=== PATIENT | female | born 1945 | race Caucasian/White ===

== ENCOUNTER → 2017-09-07 | Outpatient (CLI) | payer MEDICARE, OTHER ==
--- NOTE | 2017-09-07 11:35 | RAD ---
EXAM DESCRIPTION: Chest 2 views CLINICAL HISTORY: POS PPD COMPARISON: None TECHNIQUE: PA and lateral views of the chest FINDINGS: Lungs are well aerated bilaterally. No consolidation nor pneumothorax nor pleural effusion in either lung. Cardiomediastinal contours are unremarkable in appearance. Thoracic bony structures grossly intact. IMPRESSION: No acute cardiopulmonary process. Electronically signed by: Ced Langston MD 09/07/2017 11:35 AM [employer] PROF[employer]
== END ==
LOC: RAD 10:28
DX: Z87.898 Personal history of other specified conditions (principal)